=== PATIENT | female | born 1935 | race Two or more races ===

== ENCOUNTER 2023-05-26 14:33 | Inpatient (IN) | payer OTHER, MEDICAID ==
[~2023-05-26] VITALS: Ht 165.1 cm; Wt 82.0 kg
[2023-05-26] MEDS ORDERED: ALBUTEROL SULF 2.5 MG/0.5ML(0.5%) NEB SOLN NEB ONE (15:30)
[2023-05-26] MEDS ORDERED: IPRATROPIUM BROM 0.5 MG/2.5ML INH SOL NEB ONE (15:30)
[2023-05-26 15:33] VITALS: PULSE 110; RESP 35; O2SAT 97
[2023-05-26] MEDS ORDERED: SODIUM CHLORIDE 0.9% 500 ML IV ONE (16:00)
[2023-05-26] MEDS ORDERED: FUROSEMIDE 100 MG/10ML VIAL IV ONE (16:00)
[2023-05-26] MEDS ORDERED: SODIUM CHLORIDE 0.9% 500 ML IV STA (16:00)
[2023-05-26] MEDS ORDERED: levoFLOXacin 500MG 100 ML IV ONE (16:15)
[2023-05-26 16:20] LABS: Urine Bacteria NONE SEEN /hpf (None Seen); Urine Blood 3+ /uL (Negative); Urine Clarity CLOUDY (Clear); Urine Protein, UAD 2+ (Negative); Urine Urobilinogen Normal (Negative); Urine WBC 3189 /hpf (0 - 5); Urine WBC Clumps PRESENT /hpf (None Seen); Urine pH 6.5 (5.0-8.0)
[2023-05-26 16:22] LABS: Urine Color BROWN (Yellow); Urine Specific Gravity 1.015 (1.001-1.035)
[2023-05-26] MEDS ORDERED: BUMETANIDE INJECTION 25 MG in GIVE UN-DILUTED 0 ML IV SCH (17:15)
[2023-05-26] MEDS ORDERED: SODIUM CHL 0.9% 1000 ML BAG XX ONE (17:15)
[2023-05-26 17:50] LABS: COVID19 ANTIGEN SOFIA FIA NEGATIVE (NEGATIVE)
[2023-05-26 17:54] LABS: Basophils # (auto) 0 10 ^3/uL (0-0.2); Basophils % (auto) 0.6 % (0.0-2.0); Eosinophils # (auto) 0.1 10 ^3/uL (0-0.8); Eosinophils % (auto) 0.9 % (0.0-7.0); Hematocrit 32.9 % (36.0-46.0); Hemoglobin 10.6 g/dL (12.2-16.2); Lymphocytes # (auto) 0.7 10 ^3/uL (0.4-5.4); Lymphocytes % (auto) 8.1 % (10.0-50.0); Mean Corpuscular Hemoglobin 31.9 pg (28.0-32.0); Mean Corpuscular Hgb Conc. 32.3 g/dL (32.0-36.0); Mean Corpuscular Volume 98.9 fL (80.0-100.0); Monocytes # (auto) 0.6 10 ^3/uL (0-1.3); Monocytes % (auto) 6.7 % (0.0-12.0); Neutrophils # (auto) 6.9 10 ^3/uL (1.6-8.6); Neutrophils % (auto) 83.7 % (37.0-80.0); Red Blood Cells 3.33 10^6/uL (4.0-5.20); Red Cell Distribution Width 20.4 % (11.8-14.3); White Blood Cell 8.3 10^3/uL (4.4-10.8)
[2023-05-26 18:12] LABS: Alanine Aminotransferase 56 U/L (7-40); Albumin 2.5 g/dL (3.2-4.8); Alkaline Phosphatase 377 U/L (46-116); Anion Gap 4 (5-15); Aspartate Aminotransferase 91 U/L (13-40); BUN/Creatinine Ratio 10.6 (10.0-20.0); Bilirubin, Total 0.5 mg/dL (0.2-1.0); Blood Urea Nitrogen 18 mg/dL (9-23); Calcium 7.6 mg/dL (8.7-10.4); Carbon Dioxide 33 mmol/L (20-30); Chloride 100 mmol/L (98-107); Glucose 137 mg/dL (74-106); Potassium 3.7 mmol/L (3.5-5.1); Sodium 137 mmol/L (136-145); Total Protein 5.4 g/dL (5.7-8.2)
[2023-05-26 20:52] LABS: INR 1.07 (0.9-1.15); Partial Thromboplastin Time 31.8 SEC (24.5-34.5); Prothrombin Time 11.2 sec (9.3-11.8)
[2023-05-26] MEDS: EPOETIN ALFA-EPBX 4,000 UNIT/ML VIAL SC ONE (21:00)
[2023-05-26 21:08] LABS: Lactic Acid w/Reflex 2.2 mmol/L (0.4-2.0)
[2023-05-26] MEDS ORDERED: ALBUMIN 25% 100 ML IV ONE (21:22)
[2023-05-26] MEDS ORDERED: NITROGLYCERIN 0.4 MG SL TAB SL PRN (21:30)
[2023-05-26] MEDS ORDERED: ONDANSETRON HCL 4 MG/2 ML VIAL IV PRN (21:30)
[2023-05-26] MEDS ORDERED: ALBUTEROL SULF 2.5 MG/0.5ML(0.5%) NEB SOLN NEB PRN (21:30)
[2023-05-26 21:38] VITALS: PULSE 114; RESP 27; O2SAT 98
[2023-05-26] MEDS ORDERED: AZITHROMYCIN 500MG/ 250ML 250 ML IV ONE (22:00)
[2023-05-26] MEDS: ALBUMIN 25% 100 ML IV PRN ×2 (22:00→23:54)
[2023-05-26 22:48] LABS: Chloride 100 mmol/L (98-107)
[2023-05-26 22:49] LABS: Sodium 136 mmol/L (136-145)
[2023-05-26 22:56] VITALS: BP 110/54; PULSE 114; RESP 18; TEMP 98.6; O2SAT 98
[2023-05-26 23:22] LABS: Alanine Aminotransferase 57 U/L (7-40); Alkaline Phosphatase 359 U/L (46-116); Anion Gap 7 (5-15); Aspartate Aminotransferase 85 U/L (13-40); BUN/Creatinine Ratio 10.7 (10.0-20.0); Blood Urea Nitrogen 19 mg/dL (9-23); Calcium 8.1 mg/dL (8.5-10.1); Carbon Dioxide 29 mmol/L (20-30); Glucose 119 mg/dL (74-106)
[2023-05-26 23:23] LABS: Albumin 2.6 g/dL (3.2-4.8); Bilirubin, Total 0.4 mg/dL (0.2-1.0); Total Protein 5.4 g/dL (5.7-8.2)
[2023-05-27] VITALS (51 sets, daily range): BP systolic 83–153; BP diastolic 28–74; PULSE 66–119; RESP 13–24; TEMP 94.5–98.2; O2SAT 90–100
[2023-05-27 04:58] LABS: Basophils # (auto) 0 10 ^3/uL (0-0.2); Basophils % (auto) 0.4 % (0.0-2.0); Eosinophils # (auto) 0.1 10 ^3/uL (0-0.8); Eosinophils % (auto) 0.8 % (0.0-7.0); Hematocrit 27.3 % (36.0-46.0); Hemoglobin 8.8 g/dL (12.2-16.2); Lymphocytes % (auto) 11.3 % (10.0-50.0); Mean Corpuscular Hemoglobin 31.9 pg (28.0-32.0); Mean Corpuscular Hgb Conc. 32.4 g/dL (32.0-36.0); Mean Corpuscular Volume 98.7 fL (80.0-100.0); Monocytes # (auto) 0.6 10 ^3/uL (0-1.3); Monocytes % (auto) 7.2 % (0.0-12.0); Neutrophils # (auto) 6.8 10 ^3/uL (1.6-8.6); Neutrophils % (auto) 80.3 % (37.0-80.0); Red Blood Cells 2.77 10^6/uL (4.0-5.20); White Blood Cell 8.4 10^3/uL (4.4-10.8)
[2023-05-27 05:17] LABS: Alanine Aminotransferase 35 U/L (7-40); Albumin 2.9 g/dL (3.2-4.8); Alkaline Phosphatase 243 U/L (46-116); Anion Gap 6 (5-15); Aspartate Aminotransferase 46 U/L (13-40); BUN/Creatinine Ratio 6.7 (10.0-20.0); Carbon Dioxide 32 mmol/L (20-30); Chloride 102 mmol/L (98-107); Glucose 110 mg/dL (74-106); Sodium 140 mmol/L (136-145)
[2023-05-27 05:18] LABS: Bilirubin, Total 0.8 mg/dL (0.2-1.0); Total Protein 5.4 g/dL (5.7-8.2)
[2023-05-27 05:22] LABS: Blood Urea Nitrogen 8 mg/dL (9-23)
[2023-05-27] MEDS ORDERED: ALBUMIN 25% 100 ML IV ONE (05:30)
[2023-05-27] MEDS: PHENYLEPHRINE IV 250 ML IV SCH ×3 (06:40→22:55)
[2023-05-27] MEDS ORDERED: levoFLOXacin 250MG 50 ML IV SCH ×2 (10:00→17:00)
[2023-05-27] MEDS: POTASSIUM CHL 20MEQ/100ML 100 ML IV SCH ×3 (10:25→13:30)
[2023-05-27] MEDS: MORPHINE SULFATE INJ 2 MG/ml SYRG IV PRN (11:01)
[2023-05-27] MEDS ORDERED: MEROPENEM 1GM IVPB 100 ML IV ONE (15:00)
[2023-05-27] MEDS: NOREPINEPHRINE 8 MG/250ML KIT 250 ML IV SCH (17:45)
[2023-05-27] MEDS ORDERED: PANTOPRAZOLE 40 MG/10 ML VIAL INJ IV ONE (21:15)
[2023-05-27] MEDS ORDERED: ENOXAPARIN SOD 30 MG/0.3 ML SYRINGE SC ONE (21:15)
[2023-05-27] MEDS: MEROPENEM 1GM IVPB 100 ML IV SCH (22:26)
[2023-05-28] VITALS (82 sets, daily range): BP systolic 88–159; BP diastolic 23–137; PULSE 70–131; RESP 10–36; TEMP 97.5–98.8; O2SAT 91–100
[2023-05-28 04:03] LABS: Basophils # (auto) 0 10 ^3/uL (0-0.2); Basophils % (auto) 0.6 % (0.0-2.0); Eosinophils # (auto) 0.1 10 ^3/uL (0-0.8); Eosinophils % (auto) 1.5 % (0.0-7.0); Hemoglobin 8.7 g/dL (12.2-16.2); Lymphocytes % (auto) 16.2 % (10.0-50.0); Mean Corpuscular Hemoglobin 32.4 pg (28.0-32.0); Mean Corpuscular Hgb Conc. 32.2 g/dL (32.0-36.0); Mean Corpuscular Volume 100.7 fL (80.0-100.0); Monocytes # (auto) 0.5 10 ^3/uL (0-1.3); Monocytes % (auto) 7.9 % (0.0-12.0); Neutrophils # (auto) 4.7 10 ^3/uL (1.6-8.6); Neutrophils % (auto) 73.8 % (37.0-80.0); Nucleated Red Blood Cells % 0.2 %; Red Blood Cells 2.68 10^6/uL (4.0-5.20); White Blood Cell 6.4 10^3/uL (4.4-10.8)
[2023-05-28 04:04] LABS: Anion Gap 5 (5-15); Carbon Dioxide 32 mmol/L (20-30); Chloride 104 mmol/L (98-107); Potassium 3.6 mmol/L (3.5-5.1); Sodium 141 mmol/L (136-145)
[2023-05-28 04:05] LABS: Calcium 8.3 mg/dL (8.7-10.4)
[2023-05-28 04:10] LABS: BUN/Creatinine Ratio 6.5 (10.0-20.0); Blood Urea Nitrogen 12 mg/dL (9-23)
[2023-05-28 04:12] LABS: Red Cell Distribution Width 20.1 % (11.8-14.3)
[2023-05-28 04:16] LABS: Glucose 48 mg/dL (74-106)
[2023-05-28] MEDS ORDERED: DEXTROSE 50% SYRINGE 50 ML IV ONE (04:22)
[2023-05-28] MEDS: DEXTROSE (50%) 50ML SYRG IV PRN ×2 (04:25→08:50)
[2023-05-28] MEDS: PHENYLEPHRINE IV 250 ML IV SCH ×3 (07:15→23:27)
[2023-05-28] MEDS: InsuLIN REG 1unit/0.01ml Soln (100units/ml) SC SCH ×5 (08:00→23:43)
[2023-05-28] MEDS ORDERED: D5W/SOD CHLO 0.9% 1,000 ML IV SCH (08:15)
[2023-05-28] MEDS: ACCU-CHEK COMFORT CURVE STRIP VI SCH ×5 (08:49→23:41)
[2023-05-28] MEDS ORDERED: ACETAMINOPHEN IV 1000 MG/100ML (10MG/ML) IV ONE (10:00)
[2023-05-28] MEDS: PANTOPRAZOLE 40 MG/10 ML VIAL INJ IV SCH (10:13)
[2023-05-28] MEDS: ENOXAPARIN SOD 30 MG/0.3 ML SYRINGE SC SCH (10:13)
[2023-05-28] MEDS: MEROPENEM 1GM IVPB 100 ML IV SCH ×2 (10:13→21:57)
[2023-05-28] MEDS ORDERED: ASPirin 325 MG TAB PO ONE (12:45)
[2023-05-28] MEDS ORDERED: ASPirin 81 mg TAB PO ONE (13:00)
[2023-05-28] MEDS ORDERED: LORazepam 2MG/ML-1ML VIAL IV ONE (14:30)
[2023-05-28] MEDS: D5W/SOD CHLO 0.9% 1,000 ML IV SCH (15:00)
[2023-05-28] MEDS: NOREPINEPHRINE 8 MG/250ML KIT 250 ML IV SCH (17:45)
[2023-05-28] MEDS: ACETAMINOPHEN 325 MG TAB PO PRN (19:11)
[2023-05-29] VITALS (23 sets, daily range): BP systolic 96–138; BP diastolic 35–70; PULSE 70–108; RESP 18–38; TEMP 97.5–99; O2SAT 91–100
[2023-05-29] MEDS: ACETAMINOPHEN 325 MG TAB PO PRN (01:39)
[2023-05-29] MEDS: D5W/SOD CHLO 0.9% 1,000 ML IV SCH (02:22)
[2023-05-29] MEDS: InsuLIN REG 1unit/0.01ml Soln (100units/ml) SC SCH ×5 (03:22→20:00)
[2023-05-29] MEDS: ACCU-CHEK COMFORT CURVE STRIP VI SCH ×5 (03:22→20:00)
[2023-05-29 03:53] LABS: Basophils # (auto) 0 10 ^3/uL (0-0.2); Basophils % (auto) 0.7 % (0.0-2.0); Eosinophils # (auto) 0.1 10 ^3/uL (0-0.8); Hematocrit 30.5 % (36.0-46.0); Hemoglobin 9.6 g/dL (12.2-16.2); Lymphocytes # (auto) 0.5 10 ^3/uL (0.4-5.4); Lymphocytes % (auto) 9.1 % (10.0-50.0); Mean Corpuscular Hemoglobin 31.9 pg (28.0-32.0); Mean Corpuscular Hgb Conc. 31.6 g/dL (32.0-36.0); Monocytes # (auto) 0.3 10 ^3/uL (0-1.3); Monocytes % (auto) 5.3 % (0.0-12.0); Neutrophils # (auto) 4.9 10 ^3/uL (1.6-8.6); Neutrophils % (auto) 82.9 % (37.0-80.0); Nucleated Red Blood Cells % 0.1 %; Red Blood Cells 3.02 10^6/uL (4.0-5.20); White Blood Cell 5.8 10^3/uL (4.4-10.8)
[2023-05-29 04:24] LABS: Chloride 105 mmol/L (98-107); Potassium 4.1 mmol/L (3.5-5.1); Sodium 139 mmol/L (136-145)
[2023-05-29 04:25] LABS: Anion Gap 5 (5-15); Calcium 8.3 mg/dL (8.7-10.4); Carbon Dioxide 29 mmol/L (20-30)
[2023-05-29 04:30] LABS: BUN/Creatinine Ratio 6.1 (10.0-20.0); Blood Urea Nitrogen 15 mg/dL (9-23); Glucose 112 mg/dL (74-106)
[2023-05-29] MEDS: PHENYLEPHRINE IV 250 ML IV SCH ×2 (08:15→16:35)
[2023-05-29] MEDS: MEROPENEM 1GM IVPB 100 ML IV SCH ×3 (09:32→21:48)
[2023-05-29] MEDS ORDERED: MORPHINE SULFATE INJ 2 MG/ml SYRG IV PRN (09:45)
[2023-05-29] MEDS: PANTOPRAZOLE 40 MG/10 ML VIAL INJ IV SCH (10:04)
[2023-05-29] MEDS: MORPHINE SULFATE INJ 2 MG/ml SYRG IV PRN (10:04)
[2023-05-29] MEDS: ATORVASTATIN 20 MG TAB PO SCH ×2 (10:05→21:38)
[2023-05-29] MEDS: ENOXAPARIN SOD 30 MG/0.3 ML SYRINGE SC SCH (10:05)
[2023-05-29] MEDS ORDERED: HYDROcodone-ACET 5/325MG TAB PO PRN (11:15)
[2023-05-29] MEDS ORDERED: KETOROLAC TROMETH 30 MG/ML 1ML VIAL IV ONE (11:15)
[2023-05-29 16:51] LABS: Triglycerides 85 mg/dL (< 150)
[2023-05-29 16:52] LABS: LDL Cholesterol 30 mg/dL (< 100)
[2023-05-29 16:53] LABS: Cholesterol 81 mg/dL (< 200); HDL Cholesterol 31 mg/dL (40-59)
[2023-05-29] MEDS: NOREPINEPHRINE 8 MG/250ML KIT 250 ML IV SCH (17:45)
[2023-05-30] MEDS: InsuLIN REG 1unit/0.01ml Soln (100units/ml) SC SCH ×5 (04:00→16:37)
[2023-05-30] MEDS: ACCU-CHEK COMFORT CURVE STRIP VI SCH ×5 (04:00→16:38)
[2023-05-30 05:00] VITALS: BP 152/62; PULSE 77; RESP 16; TEMP 97.8; O2SAT 100
[2023-05-30] MEDS ORDERED: SODIUM CHL 0.9% 1000 ML BAG XX ONE (07:00)
[2023-05-30 08:00] VITALS: PULSE 98
[2023-05-30 09:00] VITALS: BP 137/64; PULSE 78; RESP 15; TEMP 98; O2SAT 98
[2023-05-30] MEDS: PANTOPRAZOLE 40 MG/10 ML VIAL INJ IV SCH (09:05)
[2023-05-30] MEDS: ENOXAPARIN SOD 30 MG/0.3 ML SYRINGE SC SCH (09:06)
[2023-05-30] MEDS: MEROPENEM 1GM IVPB 100 ML IV SCH (09:17)
[2023-05-30] MEDS ORDERED: ASPirin 81 mg TAB PO ONE (10:15)
[2023-05-30] MEDS: ALBUMIN 25% 100 ML IV PRN ×2 (11:22→12:40)
[2023-05-30 12:53] VITALS: BP 124/65; PULSE 93; RESP 16; TEMP 97.7; O2SAT 93
[2023-05-30 16:50] VITALS: BP 152/65; PULSE 107; RESP 15; TEMP 98.3; O2SAT 97
[2023-05-30] MEDS ORDERED: MEROPENEM 500MG IVPB 50 ML IV SCH (22:00)
[2023-05-31] MEDS ORDERED: ASPirin 81 mg TAB PO SCH (10:00)
== END 2023-05-30 16:39 | disposition home or self-care (01) | DRG 871 ==
LOC: ER 14:33 → EDBD 14:33 → TELE 21:33 → ICU WEST 05-27 11:32 → TELE-CENTR 05-29 17:10
PROVIDERS: ADMIT Internal Medicine; ATTEND Internal Medicine
PROC: 5A1D70Z Performance of Urinary Filtration, Intermittent, Less than 6 Hours Per Day (ICD-10-PCS; principal; 2023-05-26)
PROC: 05HC33Z Insertion of Infusion Device into Left Basilic Vein, Percutaneous Approach (ICD-10-PCS; 2023-05-26)
PROC: B54NZZA Ultrasonography of Left Upper Extremity Veins, Guidance (ICD-10-PCS; 2023-05-26)
PROC: 5A1D70Z Performance of Urinary Filtration, Intermittent, Less than 6 Hours Per Day (ICD-10-PCS; 2023-05-30)
DX: A41.9 Sepsis, unspecified organism (principal); G92.8 Other toxic encephalopathy; J96.01 Acute respiratory failure with hypoxia; N18.6 End stage renal disease; R65.21 Severe sepsis with septic shock; N17.0 Acute kidney failure with tubular necrosis; I50.31 Acute diastolic (congestive) heart failure; I21.A1 Myocardial infarction type 2; I50.33 Acute on chronic diastolic (congestive) heart failure; I63.511 Cerebral infarction due to unspecified occlusion or stenosis of right middle cerebral artery; E44.0 Moderate protein-calorie malnutrition; I13.2 Hypertensive heart and chronic kidney disease with heart failure and with stage 5 chronic kidney disease, or end stage renal disease; G81.94 Hemiplegia, unspecified affecting left nondominant side; D63.1 Anemia in chronic kidney disease; E11.22 Type 2 diabetes mellitus with diabetic chronic kidney disease; E87.6 Hypokalemia; E88.09 Other disorders of plasma-protein metabolism, not elsewhere classified; Z66 Do not resuscitate; I48.91 Unspecified atrial fibrillation; I50.9 Heart failure, unspecified; Z96.641 Presence of right artificial hip joint; S31.000A Unspecified open wound of lower back and pelvis without penetration into retroperitoneum, initial encounter; X58.XXXA Exposure to other specified factors, initial encounter; N30.90 Cystitis, unspecified without hematuria; L89.159 Pressure ulcer of sacral region, unspecified stage; J44.9 Chronic obstructive pulmonary disease, unspecified; I65.29 Occlusion and stenosis of unspecified carotid artery; R74.01 Elevation of levels of liver transaminase levels; Z20.822 Contact with and (suspected) exposure to COVID-19; R29.810 Facial weakness; M54.2 Cervicalgia; M79.89 Other specified soft tissue disorders; Z74.01 Bed confinement status; Z68.28 Body mass index [BMI] 28.0-28.9, adult; Z88.0 Allergy status to penicillin; Z88.8 Allergy status to other drugs, medicaments and biological substances; Z79.82 Long term (current) use of aspirin; Z86.73 Personal history of transient ischemic attack (TIA), and cerebral infarction without residual deficits; Z87.440 Personal history of urinary (tract) infections; Z95.0 Presence of cardiac pacemaker; Z99.2 Dependence on renal dialysis; Y93.89 Activity, other specified; Y92.89 Other specified places as the place of occurrence of the external cause; Y99.8 Other external cause status
CPT/HCPCS: 36415; 70450; 70551; 71045; 72125; 76700; 80048; 80053; 80061; 81001; 82140; 82607; 82746; 82962; 83036; 83605; 83735; 83880; 84443; 84484; 85025; 85610; 85730; 87040; 87081; 87086; 87088; 87186; 87340; 87426; 90935; 92610; 93005; 93306; 93886; 93971; 94640; 99291; C9113; G0378; J1642; J1885; J1956; J2185; J2405; J3480; J7042; P9047